=== PATIENT | female | born 1955 | race American Indian/Alaskan Native ===

== ENCOUNTER 2017-10-18 01:08 | Emergency (ER) | payer BC, OTHER ==
[2017-10-18] MEDS ORDERED: NACL 0.9% 1000 ML 1,000 ML IV ONE (01:32)
[2017-10-18 02:23] LABS: Basophils % (Auto) 0.2 % (0.0-1.8); Eosinophils % (Auto) 0.2 % (0.0-4.3); Hematocrit 38.8 % (30.3-42.9); Hemoglobin 13.1 gm/dl (10.1-14.3); Lymphocytes # (Auto) 1.1 K/mm3 (1.2-5.4); Lymphocytes % (Auto) 13.1 % (13.4-35.0); Mean Corpuscular HGB Conc 34 % (30-34); Mean Corpuscular Hemoglobin 29 pg (28-32); Mean Corpuscular Volume 87 fl (79-97); Monocytes # (Auto) 0.5 K/mm3 (0.0-0.8); Monocytes % (Auto) 5.8 % (0.0-7.3); Platelet Count 287 K/mm3 (140-440); Red Blood Count 4.47 M/mm3 (3.65-5.03); Red Cell Distribution Width 15.3 % (13.2-15.2)
[2017-10-18 02:32] LABS: INR 0.92 (0.87-1.13)
[2017-10-18 02:33] LABS: Partial Thromboplastin Time 25.2 Sec. (24.2-36.6)
[2017-10-18 02:43] LABS: Alanine Aminotransferase 18 units/L (7-56); Albumin 3.7 g/dL (3.9-5); BUN/Creatinine Ratio 27; Blood Urea Nitrogen 16 mg/dL (7-17); Calcium 8.9 mg/dL (8.4-10.2); Hemolysis Index 2; Lipase 55 units/L (13-60)
[2017-10-18] MEDS ORDERED: K-DUR PO ONE ×2 (03:16→05:20)
--- NOTE | 2017-10-18 03:17 | Emergency Department Report ---
ED General Adult HPI - General Chief complaint: GI Bleed Stated complaint: VOMITING BLOOD Time Seen by Provider: 10/18/17 03:00 Source: EMS (ems notes not available at time of chart dictation), old records reviewed Mode of arrival: Stretcher Limitations: Altered Mental Status, Other (patient demented, patient is a poor historian) - History of Present Illness Initial comments: His is a 62-year-old female. The patient is previously known to this provider. Has a past medical history of dementia, hypertension, high cholesterol. Into the ER by her [facility] for evaluation of "vomited blood at 10:45 PM." The patient is not talking and cannot describe this. She cannot describe exacerbating or relieving factors. She cannot describe radiation. No further history is available at this time. -: Sudden, This evening Severity scale (0 -10): 0 Consistency: now resolved Improves with: none Worsens with: none Associated Symptoms: other (per hpi) - Related Data Home Medications Medication Instructions Recorded Confirmed Last Taken Donepezil [Aricept] 5 mg PO QHS 05/28/14 05/28/14 Unknown Lisinopril [Zestril TAB] 20 mg PO DAILY 05/28/14 05/28/14 Unknown Memantine HCl [Namenda] 5 mg PO QHS 05/28/14 05/28/14 Unknown Verapamil [Calan] 120 mg PO DAILY 05/28/14 05/28/14 Unknown risperiDONE [RisperDAL] 1 mg PO QHS 05/28/14 05/28/14 Unknown traZODone [Desyrel] 50 mg PO QHS 05/28/14 05/28/14 Unknown Previous Rx's Medication Instructions Recorded Last Taken Type LORazepam [Ativan] 1 mg PO QHS #10 tab 05/28/14 Unknown Rx Ondansetron [Zofran Odt] 4 mg PO Q8HR PRN #20 tab.rapdis 10/18/17 Unknown Rx Pantoprazole [Protonix TAB] 20 mg PO QDAY #30 tablet. 10/18/17 Unknown Rx Potassium Chloride 20 meq PO QDAY #10 packet 10/18/17 Unknown Rx Allergies Allergy/AdvReac Type Severity Reaction Status Date / Time No Known Allergies Allergy Verified 10/18/17 01:32 ED Review of Systems ROS: Stated complaint: VOMITING BLOOD Other details as noted in HPI ED Past Medical Hx - Past Medical History Previous Medical History?: Yes Hx Hypertension: Yes Hx Psychiatric Treatment: Yes (Thanh Pineda 05/18-; Dr. Tucker) Hx Dementia: Yes Additional medical history: HIGH CHOLESTEROL - Surgical History Past Surgical History?: No - Social History Smoking Status: Unknown if ever smoked Substance Use Type: None - Medications Home Medications: Home Medications Medication Instructions Recorded Confirmed Last Taken Type Donepezil [Aricept] 5 mg PO QHS 05/28/14 05/28/14 Unknown History LORazepam [Ativan] 1 mg PO QHS #10 tab 05/28/14 Unknown Rx Lisinopril [Zestril TAB] 20 mg PO DAILY 05/28/14 05/28/14 Unknown History Memantine HCl [Namenda] 5 mg PO QHS 05/28/14 05/28/14 Unknown History Verapamil [Calan] 120 mg PO DAILY 05/28/14 05/28/14 Unknown History risperiDONE [RisperDAL] 1 mg PO QHS 05/28/14 05/28/14 Unknown History traZODone [Desyrel] 50 mg PO QHS 05/28/14 05/28/14 Unknown History Ondansetron [Zofran Odt] 4 mg PO Q8HR PRN #20 tab.rapdis 10/18/17 Unknown Rx Pantoprazole [Protonix TAB] 20 mg PO QDAY #30 tablet. 10/18/17 Unknown Rx Potassium Chloride 20 meq PO QDAY #10 packet 10/18/17 Unknown Rx ED Physical Exam - General Limitations: Other (patient is demented, patient is a poor historian) General appearance: in no apparent distress - Head Head exam: Present: atraumatic, normocephalic - Eye Eye exam: Present: normal appearance - ENT ENT exam: Present: normal exam, normal orophraynx, mucous membranes moist, normal external ear exam - Neck Neck exam: Present: normal inspection, full ROM. Absent: tenderness, meningismus - Respiratory Respiratory exam: Present: normal lung sounds bilaterally. Absent: respiratory distress, wheezes, rales, rhonchi, stridor - Cardiovascular Cardiovascular Exam: Present: regular rate, normal rhythm, normal heart sounds. Absent: systolic murmur, diastolic murmur, rubs, gallop - GI/Abdominal GI/Abdominal exam: Present: soft, normal bowel sounds. Absent: distended, tenderness, guarding, rebound, rigid, pulsatile mass - Rectal Rectal exam: Present: normal inspection, heme (+) stool, other (Brown stool that is trace guaiac positive.) - Extremities Exam Extremities exam: Present: normal inspection, full ROM, normal capillary refill. Absent: pedal edema, joint swelling, calf tenderness - Back Exam Back exam: Present: normal inspection. Absent: paraspinal tenderness, vertebral tenderness - Neurological Exam Neurological exam: Present: alert, other (55 strength upper, lower extremities. Patient moving 4 extremities spontaneously. No facial droop. Extraocular movements are intact. Neurologic examination Limited secondary to patient being demented and not cooperating) - Psychiatric Psychiatric exam: Present: other (patient nonverbal, follows commands, does not talk) - Skin Skin exam: Present: warm, dry, intact, normal color. Absent: rash ED Course Vital Signs 10/18/17 10/18/17 01:32 03:39 Temperature 99.2 F 99.0 F Pulse Rate 60 61 Respiratory 20 18 Rate Blood Pressure 156/93 162/93 [Left] O2 Sat by Pulse 99 100 Oximetry - Reevaluation(s) Reevaluation #1: 10/18/17 06:00 Dr Fernández to follow up on urinanalysis and if positive, will d/c with macrobid ED Medical Decision Making - Lab Data Result diagrams: 10/18/17 01:45 10/18/17 01:45 Vital Signs 10/18/17 10/18/17 01:32 03:39 Temperature 99.2 F 99.0 F Pulse Rate 60 61 Respiratory 20 18 Rate Blood Pressure 156/93 162/93 [Left] O2 Sat by Pulse 99 100 Oximetry Lab Results 10/18/17 10/18/17 10/18/17 Range/Units 01:30 01:45 01:45 WBC 8.0 (4.5-11.0) K/mm3 RBC 4.47 (3.65-5.03) M/mm3 Hgb 13.1 (10.1-14.3) gm/dl Hct 38.8 (30.3-42.9) % MCV 87 (79-97) fl MCH 29 (28-32) pg MCHC 34 (30-34) % RDW 15.3 H (13.2-15.2) % Plt Count 287 (140-440) K/mm3 Lymph % (Auto) 13.1 L (13.4-35.0) % Whiteside % (Auto) 5.8 (0.0-7.3) % Eos % (Auto) 0.2 (0.0-4.3) % Baso % (Auto) 0.2 (0.0-1.8) % Lymph # 1.1 L (1.2-5.4) K/mm3 Whiteside # 0.5 (0.0-0.8) K/mm3 Eos # 0.0 (0.0-0.4) K/mm3 Baso # 0.0 (0.0-0.1) K/mm3 Seg Neutrophils % 80.7 H (40.0-70.0) % Seg Neutrophils # 6.5 (1.8-7.7) K/mm3 PT 12.8 (12.2-14.9) Sec. INR 0.92 (0.87-1.13) APTT 25.2 (24.2-36.6) Sec. Sodium (137-145) mmol/L Potassium (3.6-5.0) mmol/L Chloride (98-107) mmol/L Carbon Dioxide (22-30) mmol/L Anion Gap mmol/L BUN (7-17) mg/dL Creatinine (0.7-1.2) mg/dL Estimated GFR ml/min BUN/Creatinine Ratio % Glucose (65-100) mg/dL Calcium (8.4-10.2) mg/dL Magnesium 1.90 (1.7-2.3) mg/dL Total Bilirubin (0.1-1.2) mg/dL AST (5-40) units/L ALT (7-56) units/L Alkaline Phosphatase (35-129) units/L Total Protein (6.3-8.2) g/dL Albumin (3.9-5) g/dL Albumin/Globulin Ratio % Lipase (13-60) units/L Blood Type Antibody Screen 10/18/17 10/18/17 Range/Units 01:45 01:45 WBC (4.5-11.0) K/mm3 RBC (3.65-5.03) M/mm3 Hgb (10.1-14.3) gm/dl Hct (30.3-42.9) % MCV (79-97) fl MCH (28-32) pg MCHC (30-34) % RDW (13.2-15.2) % Plt Count (140-440) K/mm3 Lymph % (Auto) (13.4-35.0) % Whiteside % (Auto) (0.0-7.3) % Eos % (Auto) (0.0-4.3) % Baso % (Auto) (0.0-1.8) % Lymph # (1.2-5.4) K/mm3 Whiteside # (0.0-0.8) K/mm3 Eos # (0.0-0.4) K/mm3 Baso # (0.0-0.1) K/mm3 Seg Neutrophils % (40.0-70.0) % Seg Neutrophils # (1.8-7.7) K/mm3 PT (12.2-14.9) Sec. INR (0.87-1.13) APTT (24.2-36.6) Sec. Sodium 144 (137-145) mmol/L Potassium 3.0 L (3.6-5.0) mmol/L Chloride 100.4 (98-107) mmol/L Carbon Dioxide 33 H (22-30) mmol/L Anion Gap 14 mmol/L BUN 16 (7-17) mg/dL Creatinine 0.6 L (0.7-1.2) mg/dL Estimated GFR > 60 ml/min BUN/Creatinine Ratio 27 % Glucose 119 H (65-100) mg/dL Calcium 8.9 (8.4-10.2) mg/dL Magnesium (1.7-2.3) mg/dL Total Bilirubin 0.30 (0.1-1.2) mg/dL AST 13 (5-40) units/L ALT 18 (7-56) units/L Alkaline Phosphatase 78 (35-129) units/L Total Protein 6.5 (6.3-8.2) g/dL Albumin 3.7 L (3.9-5) g/dL Albumin/Globulin Ratio 1.3 % Lipase 55 (13-60) units/L Blood Type O POSITIVE Antibody Screen Negative - Radiology Data Radiology results: report reviewed, image reviewed X-ray of the chest, interpreted by myself and radiology: No acute disease - Medical Decision Making Differential diagnosis, including but not limited to: Urinary tract infection, pneumonia, GI bleed Assessment and plan: 62-year-old female, demented, poor historian, sent to the ER for evaluation of possible vomiting blood. Patient has been observed in the ER for over 4 hours with no active vomiting. Vital signs have remained stable, hemoglobin and hematocrit appropriate, she is found to have brown stool that is guaiac positive. Urinalysis is pending at this time. Given lack of active vomiting, normal vital signs, patient does not require emergent GI consultation at this time. She'll be started empirically on a proton pump inhibitor, and she can follow up with outpatient gastroenterology. Critical care attestation.: If time is entered above; I have spent that time in minutes in the direct care of this critically ill patient, excluding procedure time. ED Disposition Clinical Impression: History of vomiting Disposition: DC/TX-70 ANOTHER TYPE HLTHCARE Is pt being admited?: No Does the pt Need Aspirin: No Condition: Stable Additional Instructions: The patient should avoid Motrin, ibuprofen, Naprosyn, Aleve. Patient should avoid heavy, spicy foods. Patient should take the prescribed medications as directed, and she may continue her current outpatient medications. I recommended the patient follow up with an outpatient feed management advisor within the next 2 weeks. Not following up as recommended and a resultant undiagnosed tumor, cancer, malignancy. Return to the ER right away with new pain, worsening pain, migration of pain, fevers, chills, lethargy, irritability, projectile vomiting, change in mental status, confusion, inability to tolerate liquid feeds. Prescriptions: Ondansetron [Zofran Odt] 4 mg PO Q8HR PRN #20 tab.rapdis PRN Reason: Nausea Pantoprazole [Protonix TAB] 20 mg PO QDAY #30 tablet. Potassium Chloride 20 meq PO QDAY #10 packet Referrals: JAMES RICHARDSON MD [Primary Care Provider] - 3-5 Days [facility] [Provider Group] - 3-5 Days Forms: Accompanied Note
--- NOTE | 2017-10-18 03:39 | XRay Report ---
FINAL REPORT EXAM: XR CHEST 1V AP HISTORY: hx of vomiting blood TECHNIQUE: A portable semi upright view of the chest was obtained FINDINGS: The heart size and mediastinum appear normal. The lungs are clear. Pleural fluid is not seen. The bones and soft tissues do not show any acute changes. IMPRESSION: No active chest disease.
[2017-10-18] MEDS ORDERED: NACL 0.9% 1000 ML 1,000 ML ONE (05:20)
[2017-10-18 06:35] LABS: Bilirubin,Urine NEG (Negative); Blood,Urine MOD (Negative); Color,Urine Yellow (Yellow); Mucus,Urine 3+ /HPF; Nitrite,Urine NEG (Negative); Urobilinogen,Urine < 2.0 mg/dL (<2.0)
[2017-10-18 06:40] VITALS: BP 150/60
== END 2017-10-18 08:00 | disposition other institution (70) ==
LOC: ED 01:08
DX: R11.10 Vomiting, unspecified (principal); I10 Essential (primary) hypertension; E78.00 Pure hypercholesterolemia, unspecified; F03.90 Unspecified dementia, unspecified severity, without behavioral disturbance, psychotic disturbance, mood disturbance, and anxiety
CPT/HCPCS: 36415; 71045; 80053; 81001; 82271; 83690; 83735; 85025; 85610; 85730; 86850; 86900; 86901; 87086; 93005; 93010; 96360; 96361; 99284; J7030